=== PATIENT | female | born 1985 | race Hispanic/Latino ===

== ENCOUNTER → 2024-04-22 | Outpatient (CLI) | payer BC ==
--- NOTE | 2024-04-22 11:10 | HMCIMG ---
SCREENING MAMMOGRAM REASON: Annual Exam COMPARISON: None, baseline TECHNIQUE: CC and MLO views of the bilateral breasts were performed.CAD was performed as well. FINDINGS: Parenchymal density: The breasts are heterogeneously dense, which may obscure small masses. There are no focal mass lesions. There are no pathologic appearing calcifications. There is no evidence of architectural distortion or skin thickening. IMPRESSION: Normal screening mammogram The patient was entered into a reminder system with a target due date for their next mammogram. BI-RADS CATEGORY 1: NEGATIVE Recommend monthly self breast exam as well as annual clinical examination. A negative x-ray should not delay biopsy if a dominant or clinically suspicious mass is present, since 8-10% of cancers are not identified by mammography. Dense breasts particularly, may obscure an underlying neoplasm. Some of these may be detected clinically and therefore, clinical examination is an essential part of breast evaluation.
== END | disposition home or self-care (01) ==
LOC: RAH 08:53
PROVIDERS: ATTEND Family Medicine
DX: Z12.31 Encounter for screening mammogram for malignant neoplasm of breast (principal); R92.333 Mammographic heterogeneous density, bilateral breasts
CPT/HCPCS: 77067